=== PATIENT | male | born 1995 | race Two or more races ===

== ENCOUNTER 2021-07-01 02:01 | Emergency (ER) | payer SELFPAY ==
[~2021-07-01] VITALS: Ht 177.8 cm; Wt 108.9 kg
[2021-07-01] MEDS ORDERED: IBUP800T27 PO (06:55)
[2021-07-01] MEDS ORDERED: IBUPROFEN 800 MG TAB PO ONE (07:00)
[2021-07-01 07:09] VITALS: BP 167/103
== END 2021-07-01 07:14 | disposition home or self-care (01) ==
LOC: ER 02:01
DX: S29.012A Strain of muscle and tendon of back wall of thorax, initial encounter (principal); F17.210 Nicotine dependence, cigarettes, uncomplicated; F12.10 Cannabis abuse, uncomplicated; X50.0XXA Overexertion from strenuous movement or load, initial encounter; Y93.89 Activity, other specified; Y92.89 Other specified places as the place of occurrence of the external cause; Y99.8 Other external cause status
CPT/HCPCS: 71046